=== PATIENT | female | born 1965 | race Caucasian/White ===

== ENCOUNTER → 2017-08-14 | Outpatient (CLI) | payer BC ==
[2017-08-14 11:47] LABS: ALT 40 U/L (9-52); AST 22 U/L (14-36); Alkaline Phosphatase 129 U/L (38-126); Anion Gap 12 mmol/L; Bilirubin, Delta 0.2 mg/dL (0.0-0.2); Blood Urea Nitrogen 13 mg/dL (7-17); Carbon Dioxide 27 mmol/L (22-30); Chloride 101 mmol/L (98-107); Non-African American GFR(MDRD) >60 (>60 ml/min/1.73 sqM); Potassium 4.6 mmol/L (3.5-5.1); Sodium 140 mmol/L (137-145); Total Bilirubin 0.7 mg/dL (0.2-1.3); Total Protein 7.6 g/dL (6.3-8.2)
[2017-08-14 12:59] LABS: Hemoglobin A1C 7.2 % (4.2-6.1)
== END ==
LOC: LABWHC1 09:51
PROVIDERS: ATTEND Internal Medicine
DX: E11.9 Type 2 diabetes mellitus without complications (principal); I10 Essential (primary) hypertension; R79.89 Other specified abnormal findings of blood chemistry
CPT/HCPCS: 36415; 80051; 80076; 82565; 83036; 84520

== ENCOUNTER → 2019-03-03 | Outpatient (CLI) | payer BC ==
--- NOTE | 2019-03-03 21:47 | MR ---
EXAMINATION TYPE: MR ankle RT wo con, MR foot RT wo con DATE OF EXAM: 03/03/2019 COMPARISON: None HISTORY: Posterior tibial tendon dysfunction, edema, possible tear. Pain and swelling for one month a fter injury per patient. Standard multiplanar, multisequence MRI departmental protocol Multiplanar, multisequence images of the right foot and ankle are acquired. FINDINGS: Distal Achilles tendon is intact. There is small size superior calcaneal spur. Plantar fasc ia is felt within normal limits. The peroneus brevis and longus tendons are intact and felt within normal limits. There is suspected accessory navicular bone base of cuboid axial image 12, correlate with plain films advised. No definitive suspicious edema is present. There is mild edema posterior medial to the PT a nd FDL tendons at level of medial malleolus axial image 22. Tendons remain intact without abnormal in ternal signal. FHL tendon felt within normal limits. Extensor tendons anteriorly are intact. Anterior tibiofibular ligament shows focal increased signal with surrounding fluid axial image 22. An terior talofibular ligament is intact. Medial deltoid ligament is intact. Ankle mortise symmetry is preserved. Normal sinus tarsi fat is seen. Hindfoot articulation are mainta ined. Bone marrow signal intensity is preserved Images of the right foot show flexion and varus positioning distal third through fifth toes. Bone mar row signal intensity is maintained. Muscle bulk is preserved. No suspicious solid or cystic mass or f luid collection is identified. IMPRESSION: 1. Accessory navicular bone is present. There is mild edema at level of medial malleolus near FDL and PT tendons suggesting possible mild sprain injury. No partial tear is identified. 2. There is abnormal signal or focal tear through the anterior distal tibiofibular ligament.
== END ==
LOC: RADMRIMAIN 19:52
PROVIDERS: ATTEND Podiatrist Foot & Ankle Surgery
DX: R60.0 Localized edema (principal)

== ENCOUNTER → 2019-08-28 | Outpatient (CLI) | payer BC ==
--- NOTE | 2019-08-28 12:30 | MR ---
EXAMINATION TYPE: MR tib fib RT wo con DATE OF EXAM: 08/28/2019 COMPARISON: MRI of the right ankle dated 03/03/2019 HISTORY: Injury of Achilles tendon. Right lower extremity pain. TECHNIQUE: Multiplanar, multisequence images of the right tibia and fibula were acquired without intravenous con trast. FINDINGS: There is some focal subcutaneous edema along the posterior and lateral left lower extremity ultrasound axial fat sat image 1 however the visualized portions of the Achilles tendon and posterio r compartment musculature are unremarkable. No localized tear or increased signal in the visualized A chilles tendon to indicate sprain. No muscular strain is seen. Subcutaneous edema is also noted over the anterior compartment. In the visualized right and left tibia and fibula no bone marrow replacing suspicious process is seen. Small tricompartmental osteophytes are partially visualized. No suspiciou s solid or cystic mass. IMPRESSION: Mild degree nonspecific subcutaneous edema. No MR evidence of intramuscular tear, muscular strain, Ac hilles tendon tear, or Achilles tendon sprain in the visualized portions of the Achilles.
--- NOTE | 2019-08-28 13:10 | MR ---
Right ankle MRI HISTORY: Pain in calf, injury of the Achilles tendon Multiplanar multisequence imaging through the right ankle Correlation to prior right ankle MRI 03/03/2019 There is subcutaneous T2 increased signal both medially and laterally about the ankle and at the leve l of the dorsum of the foot. Bone marrow signal is maintained. Small amount of fluid signal present along the flexor tendons at th e level of the ankle. Peroneal longus and brevis tendon, flexor and extensor tendons are intact. Achi lles tendon shows a small amount of increased internal signal similar to prior exam. There is some lo nieves T2 increased signal within the subcutaneous fat. No discrete rupture. The fluid signal along the anterior tibiofibular ligament shows a similar appearance. Focal T2 intense signal present along the level of the posterior tibial tendon on axial image #18, sagittal image 6, coronal image 14 may repre sent a small ganglion cyst measuring 7 mm as on prior exam the level of the distal talus medially. Th ere is no ankle joint effusion. Sinus Tarsi shows stable signal. Small ossific densities are present distal to the medial malleolus which are well-corticated similar to prior exam. Deltoid ligament is i ntact. Articular cartilage signal is maintained. Spurring present at the talonavicular joint with freida e associated fluid similar to prior exam consistent with some local arthropathy. IMPRESSION: Achilles tendon does not show significant interval change, findings could represent a mil d strain but there is no ermelinda tear. Soft tissue edema or ecchymosis likely present. Small ganglion c yst medially. There is not a significant interval change compared to prior exam.
== END | disposition home or self-care (01) ==
LOC: RADMRIMAIN 07:39
PROVIDERS: ATTEND Podiatrist Foot & Ankle Surgery
DX: M67.471 Ganglion, right ankle and foot (principal); S86.001A Unspecified injury of right Achilles tendon, initial encounter

== ENCOUNTER → 2020-04-22 | Outpatient (CLI) | payer BC ==
[2020-04-22 11:52] LABS: African American GFR (CKD) 96.9 (60.0-200.0); Albumin 4.6 g/dL (3.80-4.90); Albumin/Globulin Ratio 1.92 (1.60-3.17); Anion Gap 9.6 mmol/L (4.00-12.00); BUN/Creat Ratio 22.5 Ratio (12.00-20.00); Calcium 9.8 mg/dL (8.7-10.3); Carbon Dioxide 25.4 mmol/L (21.6-31.8); Chol/HDL Ratio 3.39; Globulin 2.4 g/dL (1.6-3.3); LDL Cholesterol,Calculated 67.6 mg/dL (0.0-131.0); Non-African American GFR(CKD) 83.6 (60.0-200.0); Potassium 4.8 mmol/L (3.5-5.5); Total Bilirubin 0.7 mg/dL (0.2-1.2); VLDL Calculation 49.4 mg/dL (5.00-40.00)
[2020-04-22 13:33] LABS: Hemoglobin A1C 8.9 % (4.0-6.0)
[2020-04-23 16:51] LABS: Hepatitis B Core IgM Non-Reactive (Non-Reactive); Hepatitis C IgG Antibody Non-Reactive (Non-Reactive)
[2020-04-23 18:17] LABS: Hepatitis A Antibody IgM Non-Reactive (Non-Reactive); Hepatitis B Surface Antigen Non-Reactive (Non-Reactive)
== END | disposition home or self-care (01) ==
LOC: LABWHC1 07:07
PROVIDERS: ATTEND Internal Medicine
DX: E11.9 Type 2 diabetes mellitus without complications (principal); E78.5 Hyperlipidemia, unspecified; R94.5 Abnormal results of liver function studies
CPT/HCPCS: 36415; 80053; 80061; 80074; 83036

== ENCOUNTER → 2020-11-25 | Outpatient (CLI) | payer BC ==
[2020-11-25 10:59] LABS: African American GFR (CKD) 96.2 (60.0-200.0); Albumin 4.9 g/dL (3.80-4.90); Albumin/Globulin Ratio 2.33 (1.60-3.17); Anion Gap 6.6 mmol/L (4.00-12.00); Bilirubin, Conjugated 0.2 mg/dL (0.20-0.40); Bilirubin,Unconjugated 0.5 mg/dL; Carbon Dioxide 29.4 mmol/L (21.6-31.8); Chol/HDL Ratio 3.89; Globulin 2.1 g/dL (1.6-3.3); LDL Cholesterol,Calculated 90.8 mg/dL (0.0-131.0); Total Bilirubin 0.7 mg/dL (0.2-1.2); VLDL Calculation 42.2 mg/dL (5.00-40.00)
== END | disposition home or self-care (01) ==
LOC: LABWHC1 07:22
PROVIDERS: ATTEND Internal Medicine
DX: E11.9 Type 2 diabetes mellitus without complications (principal); I10 Essential (primary) hypertension; E78.5 Hyperlipidemia, unspecified
CPT/HCPCS: 36415; 80051; 80061; 80076; 82565; 82947; 83036; 84520